=== PATIENT | male | born 1955 | race Caucasian/White ===

== ENCOUNTER → 2024-12-30 | Outpatient (CLI) | payer BC, MEDICARE ==
--- NOTE | 2024-12-30 14:52 | HMCIMG ---
Lumbar spine 7 views: AP, lateral, coned-down lateral view of the L5-S1 level, and bilateral obliques, and lateral flexion and extension views Comparison Study: none History: VERTEBROGENIC LOW BACK PAIN Findings: Exam of the lumbosacral spine demonstrates no evidence of fracture, subluxation, or significant degenerative change. The alignment of the spine is normal. The lateral flexion and extension views demonstrate no abnormal motion. The disc spaces are intact. The facet joints are preserved without significant degenerative changes there is mild osteopenia. Bone mineralization is normal. Impression: Normal 7-view exam of the lumbosacral spine.
== END | disposition home or self-care (01) ==
LOC: RAH 14:03
PROVIDERS: ATTEND Physical Medicine & Rehabilitation
DX: M85.88 Other specified disorders of bone density and structure, other site (principal); M54.51 Vertebrogenic low back pain
CPT/HCPCS: 72110

== ENCOUNTER → 2025-01-05 | Outpatient (CLI) | payer BC, MEDICARE ==
--- NOTE | 2025-01-07 10:57 | HMCIMG ---
Exam Type: SCOLIOSIS 2-3VW Clinical Information: [facility] ,DISCREPENCY Comparison: None Findings: The entire spine is well visualized. There is no significant curvature. All pedicles and spinous processes are intact. No fracture or bony lesions are identified. The disc spaces are normal. The visualized soft tissues are unremarkable. IMPRESSION: No scoliosis. No acute pathology.
== END | disposition home or self-care (01) ==
LOC: RAH 13:20
PROVIDERS: ATTEND Physical Medicine & Rehabilitation
DX: M21.70 Unequal limb length (acquired), unspecified site (principal)
CPT/HCPCS: 72082